=== PATIENT | female | born 1955 | race Caucasian/White ===

== ENCOUNTER 2020-09-11 17:01 | Emergency (ER) | payer BC ==
[~2020-09-11] VITALS: Ht 154.9 cm; Wt 57.1 kg
[~2020-09-11 17:01] MED LIST: ADULT LOW DOSE81 MG; ALLEGRA180 MG PO; APAP650 PO; CYCLOBENZAPRINE10 MG PO; CYMBALTA60 MG; FLONASE 0.05%50 MCG NASAL; FOSAMAX 70 MG T70 MG PO; LIPITOR40 MG; MINIPRIN81 MG PO; MOBIC15 MG PO; NAPROSYN500 MG PO; NITROSTAT0.4 MG SL; PREMARIN0.625 MG; TRAMADOL PO; UNICOMPLEX M TA1 TA1 PO; XANAX 0.25 MG0.25 MG PO; [UNRECOGNIZED DRUG - REMARK] PO
[2020-09-11] MEDS ORDERED: PROTONIX 20 MG20 MG PO (17:20)
[2020-09-11 17:32] LABS: URINE BILIRUBIN NEGATIVE (Negative); URINE BLOOD NEGATIVE (Negative); URINE CLARITY CLEAR; URINE COLOR YELLOW; URINE GLUCOSE-RANDOM NEGATIVE (Negative); URINE KETONES NEGATIVE (Negative); URINE LEUKOCYTES-REFLEX NEGATIVE (Negative); URINE NITRITE-REFLEX NEGATIVE (Negative); URINE PROTEIN NEGATIVE (Negative); URINE SPECIFIC GRAVITY <= 1.005 (1.005-1.030); URINE UROBILINOGEN 0.2 E.U./dl (0.2-1.0)
[2020-09-11 17:43] LABS: ABSOLUTE BASOPHILS 0.1 thou/uL (0.0-0.2); ABSOLUTE EOSINOPHILS 0.3 thou/uL (0.0-0.7); ABSOLUTE MONOCYTES 0.6 thou/uL (0.0-1.2); ABSOLUTE NEUTROPHILS 5.4 thou/uL (1.6-8.1); BASOPHILS 0.7 %; EOSINOPHILS 3.3 %; HEMATOCRIT 43.1 % (37.0-47.0); HEMOGLOBIN 14.6 gm/dL (12.0-15.0); LYMPHOCYTES 23.8 %; MCHC 33.9 g/dL (28.0-37.0); MCV 85.4 fL (80.0-100.0); MONOCYTES 7.5 %; NUCLEATED RBCS 0 /100WBC; PLATELET COUNT* 207 thou/uL (150-400); POLYS 64.7 %; RBC 5.04 mil/uL (4.20-5.00); RDW-CV 13.7 % (10.5-14.5); WBC 8.3 thou/uL (4.0-11.0)
[2020-09-11 17:52] LABS: CALCIUM 9.2 mg/dL (8.5-10.1); CREATININE 0.6 mg/dL (0.6-1.3); POTASSIUM 3.9 mmol/L (3.5-5.1)
[2020-09-11 17:57] LABS: ALBUMIN 3.9 g/dL (3.4-5.0); TOTAL BILIRUBIN 0.3 mg/dL (<0.1-1.0); TOTAL PROTEIN 7.7 g/dL (6.4-8.2)
[2020-09-11 19:46] VITALS: BP 147/94
--- NOTE | 2020-09-12 09:37 | EKG ---
[place] [address] ELECTROCARDIOGRAM REPORT Name: CHRISTINA GARCIA Room: [facility]#: [id number] Admission: 09/11/20 Attend Phys: Discharge: 09/11/20 Date of : 57 Date of Service: 09/11/20 1738 Report #: [id number] THIS REPORT FOR: //name// [facility] ED Test Date: 2020-09-11 Test Time: 17:38:00 Pat Name: CHRISTINA GARCIA Department: Room: Gender: F Box Cutter: AVRIL : 1955 Requested By: Yasmeen Baeza Order Number: [id number] MD: Shviam Muniz Measurements Intervals [place] Rate: 65 P: 25 OK: 149 QRS: -20 QRSD: 92 T: 8 QT: 428 QTc: 445 Interpretive Statements Sinus rhythm Borderline left axis deviation Compared to ECG 04/29/2010 14:51:07 No significant changes Electronically Signed On 09-12-2020 9:37:20 CDT by Shivam Muniz [email or web address] <ELECTRONICALLY SIGNED> By: Shivam Muniz MD, [facility] 09/12/20 0937 1738 1738 Shivam Muniz MD, [facility] /EPI
== END 2020-09-11 19:46 | disposition home or self-care (01) ==
LOC: M.ERS 17:01
PROVIDERS: Nurse Practitioner Family
DX: R10.31 Right lower quadrant pain (principal); E78.00 Pure hypercholesterolemia, unspecified; Z88.6 Allergy status to analgesic agent; Z88.5 Allergy status to narcotic agent; Z87.891 Personal history of nicotine dependence; Z90.710 Acquired absence of both cervix and uterus; Z87.442 Personal history of urinary calculi